=== PATIENT | male | born 1960 | race Caucasian/White ===

== ENCOUNTER 2025-06-13 10:26 | Emergency (ER) | payer MEDICARE, SELFPAY ==
--- NOTE | 2025-06-13 10:48 | EKG_ITS ---
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
--- NOTE | 2025-06-13 10:48 | XR_ITS ---
PA chest film on 06/13/2025 Comparison study Findings heart size and configuration are normal. There is mildly prominent diffuse elongation and tortuosity of the thoracic aorta, quite possibly related to hypertensive cardiovascular disease. This is definitely more prominent than on the prior chest film. Both right and left lungs and pleural space are clear normal pulmonary vascularity is normal. No abnormalities are seen involving the bony thorax there is no evidence of enlargement of the spleen. IMPRESSION: 1. Since the previous comparison chest film the patient has developed increased mild elongation and tortuosity of the thoracic aorta. 2. In all other respects the chest films entirely normal
[2025-06-13 10:49] VITALS: BP 160/88; PULSE 78; RESP 18; TEMP 36.7; O2SAT 96; BMI 23.6
--- NOTE | 2025-06-13 10:49 | PD.EDRME ---
Rapid Medical Screening Exam RME Arrival date/time: 06/13/25 10:26 64-year-old male with a history of hypertension presents to the emergency room with a chief complaint of dizziness, lightheadedness, headache x 2 days I have greeted and performed a focused initial assessment of this patient. A comprehensive ED assessment and evaluation of the patient, analysis of all test results, and completion of the medical decision making process will be conducted by additional ED providers. Chief Complaint: Dizziness Vital signs reviewed by provider: Yes Exam: The patient is a GCS of 15 he is alert and oriented x 3 Patient has clear bilateral lung sounds The patient has a strong and regular rhythm Clinical Impression: Community-acquired pneumonia/anemia/orthostatic hypotension
--- NOTE | 2025-06-13 11:07 | EDNOTE_ITS ---
ED Dizzyness RME/HPI General Chief Complaint: Dizziness Stated Complaint: HIGH BP, DIZZY LAST NIGHT, COUGH Time Seen by Provider: 06/13/25 11:07 Arrival date/time: 06/13/25 10:26 RME / HPI RME / HPI Narrative: 06/13/25 10:26 64-year-old male with a history of hypertension presents to the emergency room with a chief complaint of dizziness, lightheadedness, headache x 2 days I have greeted and performed a focused initial assessment of this patient. A comprehensive ED assessment and evaluation of the patient, analysis of all test results, and completion of the medical decision making process will be conducted by additional ED providers. See [facility] for Dr. Beard's HPI Documentation. Exam: The patient is a GCS of 15 he is alert and oriented x 3 Patient has clear bilateral lung sounds The patient has a strong and regular rhythm Impression: Community-acquired pneumonia/anemia/orthostatic hypotension Related Data Home Medications ?Medication ?Instructions ?Recorded ?Confirmed atenolol 25 mg tablet 25 mg PO QDAY 01/05/2401/04 lisinopril 20 mg tablet 20 mg PO QDAY 01/05/2401/04 Previous Rx's ?Medication ?Instructions ?Recorded azithromycin 500 mg tablet 500 mg PO QDAY 3 days #3 ta bs 06/13/25 (Zithromax TRI-SANTOS) clonidine HCl 0.1 mg tablet 0.1 mg PO BID #60 tabs 02/28 scopolamine base 1 mg over 3 days 1 mg topical .q72 ho urs PRN 06/13/25 transdermal patch (Transderm-Scop) dizziness or vertig o #4 ea Allergies Allergy/AdvReac Type Severity Reaction Status Date / Time No Known Allergies Allergy Verified 06/13/25 10:31 Review of Systems Review of Systems Systems Reviewed: All systems reviewed, normal except as documented ED Exam Narrative Physical exam: See [facility] for Dr. Beard's Physical Exam Documentation. Course Quality Measures none Orders Category Date Time Status EKG (ED ONLY) *Do not use* NOW Care 06/13/25 10:[address] head/brain wo con Stat Exams 06/13/25 11:10 Completed EKG (ED Only) Stat Exams 06/13/25 10:48 Draft XR chest 1V portable Stat Exams 06/13/25 10:48 Completed B-Type Natriuretic Peptide Stat Lab 06/13/25 11:10 Completed Bilirubin,Direct Stat Lab 06/13/25 11:10 Completed CBC Stat Lab 06/13/25 11:10 Completed Comprehensive Metabolic Panel Stat Lab 06/13/25 11:10 Completed Free T4 (Free Thyroxine) Stat Lab 06/13/25 11:10 Completed Magnesium Stat Lab 06/13/25 11:10 Completed TSH [Thyroid Stimulating Hormone] Stat Lab 06/13/25 11:10 Completed Troponin I Stat Lab 06/13/25 11:10 Completed Urinalysis, C/S if Indicated Stat Lab 06/13/25 11:30 Completed cloNIDine HCL [Catapres] Med 06/13/25 11:09 Discontinued 0.2 mg PO X1 ONE Vital Signs Vital signs: Vital Signs Temperature 98.0 F 06/13/25 10:49 Pulse Rate 78 06/13/25 10:49 Respiratory Rate 18 06/13/25 10:49 Blood Pressure 160/88 H 06/13/25 10:49 Pulse Oximetry (%) 96 06/13/25 10:49 Oxygen Delivery Method Room Air 06/13/25 10:49 Dizziness MDM Narrative MDM Narrative:: This section includes all my notes and documentations, including HPI, PE, and ED course. James Beard MD HPI: 64-year-old male here with vertigo symptoms since last night. Resolved a few hours ago. Takes atenolol 25 mg and lisinopril 20 mg every morning. This morning, he took 2 pills of lisinopril 20 mg. He also reports a week of worsening cough, productive cough, purulent sputum, and dyspnea--getting better. No speech or visual impairment.no loss of power in the arms or legs. No chest pain. No other complaints. ROS: All negative except as documented in HPI. Physical Exam: General:? Alert and oriented.? No acute distress.??High BP noted. Eyes:? Conjunctivae and lids clear.? EOMI.? PERRL. ENT:? No nasal congestion.? Pharynx normal.? Tympanic membrane normal bilaterally.??? Neck:? Supple.? No carotid bruit.? No JVD.?? Heart:? RRR.? Lungs:? No respiratory distress.? Good air movement.? No rhonchi, wheezing, rales.?? Abdomen:? Soft and nontender.? Legs:? No clubbing, cyanosis, edema.? Skin:? Warm and dry.?? Neuro:? Alert and oriented X 3.? Cranial Nerves II-XII grossly intact.? No peripheral motor deficits. I reviewed all diagnostic test results: My interpretation of the EKG is: Sinus rhythm (78 bpm) with nonspecific ST-T c hanges. My interpretation of the chest x-ray is NAD. My review of the Head/Brain CT report is NAD. Blood tests and urine tests unremarkable. At this point, diagnoses include: Vertigo Hypertension Respiratory Infection Treatment here included: Catapres 0.2 mg PO BP improved. Recommended more outpatient care. Based on my best medical judgment, made decision no further evaluation or treatment indicated at this time. Patient understands and agrees to the discharge instructions customized and printed, see below. Discharge Instructions from Dr. Beard printed for you: 1. After extensive evaluation, there is no life-threatening condition. Such as stroke or brain tumor or heart attack. 2. Your vertigo dizziness last night (see attached handout) was due to inner ear infection. Scopolamine patches as needed with spinning dizziness. 3. Take Zithromax for bronchitis and the inner ear infection. 4. We need to keep BP low to prevent future heart attacks and strokes. Continue your current lisinopril and atenolol daily. Take Clonidine 0.1 mg pill(s) every 12 hours as needed based on SBP (higher number of BP). SBP > 140, take one pill. SBP > 160, take two pills. SBP > 180, take three pills. SBP > 200, take four pills. 5. See a private doctor on 06/15/2025 for recheck and further care. Ask to review all test results and official radiology reports, to make sure you receive all necessary follow-ups and monitoring. To make sure there is no serious underlying heart condition, ask to help you get more tests for your heart that cannot be done here in the ER. Such as Holter Monitor (cardiac monitoring at home from a day to even a month), heart stress test (on treadmill or with medication), echocardiogram (imaging of your heart structures), heart catherization (checking for blockages in your heart arteries), and a referral to see a Hard Hat Diver. 6. Seek immediate medical care with worsening or with any concerns. James Beard MD Patient data External records reviewed:: [facility] previous records (No prior ED records available for review) Clinical information provided by:: patient Social determinants that could affect healthcare access:: none Patient has the following chronic illnesses:: None reported How is presenting disease/condition affected by chronic disease/condition?: no chronic disease Evaluation data The following diagnostics were reviewed and interpreted by me:: EKG tracing(s) (My interpretation of the EKG is: Sinus rhythm (78 bpm) with nonspecific ST-T changes. James Beard MD) Lab and/or radiology exams considered but not ordered:: None Interpretation Summary: I reviewed all diagnostic test results: My interpretation of the EKG is: Sinus rhythm (78 bpm) with nonspecific ST-T changes. My interpretation of the chest x-ray is NAD. My review of the Head/Brain CT report is NAD. Blood tests and urine tests unremarkable. Medications / Prescriptions Medications or Prescriptions considered but not ordered:: None Medication administrations:: Medication Administration History Discontinued Medications Clonidine (Clonidine Hcl 0.1 Mg Tablet) 0.2 mg PO X1 ONE Stop: 06/13/25 11:10 Last Admin: 06/13/25 11:26 Dose: 0.2 mg Documented By: LYNETTE Catapres 0.2 mg PO Consultations Consultation(s) initiated? (list below): No Diagnosis Dizziness Differential Diagnosis: adverse reaction to drug, benign paroxysmal positional vertigo, orthostatic hypotension, vertebral basilar insufficiency, cerebrovascular accident, acute vestibular neuronitis and transient cerebral ischemia Most likely diagnosis given after review of the tests above:: Vertigo Hypertension Respiratory Infection Admission Indicated Admission indicated?: not indicated Explain why admission is indicated or not indicated:: With significant improvement and no condition needing emergent intervention, the re was no indication for admission. Admission Request Was there a request for admission?: No Disposition Plan Disposition Plan: Discharge Discharge Attestation Discharge Attestation: The patient and all family members were given an opportunity to ask questions and understood the discharge instructions. Discharge instructions specifically effects, indications for sooner follow up or return to the emergency department, and the expected course of current diagnosis. Patient condition: Stable Discharge Plan Plan Patient Disposition: HOME (Self Care) Prescriptions/Referrals Prescriptions/Med Rec: New clonidine HCl 0.1 mg tablet 0.1 mg PO BID Qty: 60 0RF scopolamine base [Transderm-Scop] 1 mg over 3 days patch 3 day 1 mg topical .q72 hours PRN (Reason: dizziness or vertigo) Qty: 4 0RF azithromycin [Zithromax TRI-SANTOS] 500 mg tablet 500 mg PO QDAY 3 Days Qty: 3 0RF No Action lisinopril 20 mg tablet 20 mg PO QDAY atenolol 25 mg tablet 25 mg PO QDAY Problem List Clinical Impression: Vertigo, Respiratory infection, Hypertension Patient/Caregiver Discharge Instructions Discharge Activity: activity as tolerated Education Materials: ED Bronchitis, Antibiotics (Child), ED Hypertension, Established, ED Vertigo, Unspecified Additional Instructions: Discharge Instructions from Dr. Beard printed for you: 1. After extensive evaluation, there is no life-threatening condition. Such as stroke or brain tumor or heart attack. 2. Your vertigo dizziness last night (see attached handout) was due to inner ear infection. Scopolamine patches as needed with spinning dizziness. 3. Take Zithromax for bronchitis and the inner ear infection. 4. We need to keep BP low to prevent future heart attacks and strokes. Continue your current lisinopril and atenolol daily. Take Clonidine 0.1 mg pill(s) every 12 hours as needed based on SBP (higher number of BP). SBP > 140, take one pill. SBP > 160, take two pills. SBP > 180, take three pills. SBP > 200, take four pills. 5. See a private doctor on 06/15/2025 for recheck and further care. Ask to review all test results and official radiology reports, to make sure you receive all necessary follow-ups and monitoring. To make sure there is no serious underlying heart condition, ask to help you get more tests for your heart that cannot be done here in the ER. Such as Holter Monitor (cardiac monitoring at home from a day to even a month), heart stress test (on treadmill or with medication), echocardiogram (imaging of your heart structures), heart catherization (checking for blockages in your heart arteries), and a referral to see a Hard Hat Diver. 6. Seek immediate medical care with worsening or with any concerns. Print Language: Maltese Stand Alone Forms: Maria Esther Award Info., Patient Portal Info Letter
--- NOTE | 2025-06-13 11:10 | XR_ITS ---
Examination: CT brain head without contrast. 2-D sagittal coronal reconstructions Date and time of exam: Examination was performed on 06/13/2025 at 11:40 3:00 a.m. CTDI: vol (mGy): CTDI is 53.0 DLP: (mGycm): 1120 Technique: Multiple CT axial sections of the brain have been obtained, 5 mm slice thickness. Contrast has not been administered. 2-D sagittal, coronal reconstructions have been obtained Low dose protocols were performed. One or more of the following dose reduction techniques were used; automated exposure control, adjustment of the mA and/or KV according to patient size, use of iterative reconstruction technique. Findings: No significant ventricular enlargement. Intra-axial or extra-axial hemorrhage density is not seen. No mass effect or midline shift There is mildly prominent dilatation of the extra-axial space over both right and left parietal lobe convexities and over the ventral margin of the right and left frontal lobes. . 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 The remaining paranasal sinuses are clear and normal Cranial vault intact. Impression: Negative for acute hemorrhage, mass effect or midline shift 2. 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
[2025-06-13 11:26] VITALS: BP 160/88; PULSE 78
[2025-06-13 11:37] LABS: Basophils # (Auto) 0.0 Thou/mm3 (0.0-0.2); Basophils % (Auto) 0 % (0-2.5); Eosinophils # (Auto) 0.0 Thou/mm3 (0.0-0.5); Eosinophils % (Auto) 0 % (0-10); Hematocrit 41.4 % (41.0-53.0); Hemoglobin 14.1 g/dL (13.5-16.0); Immature Granulocytes Auto 0.02 Thou/mm3 (0.00-0.00); Lymphocytes # (Auto) 1.1 Thou/mm3 (1.0-4.8); Lymphocytes % (Auto) 20 % (10-50); Mean Corpuscular HGB Conc 34.1 g/dl (31.0-37.0); Mean Corpuscular Hemoglobin 31.4 pg (25.0-35.0); Mean Corpuscular Volume 92 fL (80-100); Monocytes # (Auto) 0.3 Thou/mm3 (0.0-0.8); Monocytes % (Auto) 6 % (0-12); Neutrophils # (Auto) 4.1 Thou/mm3 (1.8-7.7); Neutrophils % (Auto) 73 % (37-80); Nucleated Red Blood Cell # 0.00 Thou/mm3 (0.00-0.00); Nucleated Red Blood Cell % 0 /100 WBC (0); Platelet Count 203 Thou/mm3 (140-440); RDW Standard Deviation 42.2 fL (35.1-43.9); Red Blood Count 4.49 Miln/mm3 (4.50-5.90); White Blood Count 5.6 Thou/mm3 (3.8-10.6)
[2025-06-13 11:50] LABS: Collection Type, Urine Clean Catch; Squamous Epithelial Cell,Urine 0 /hpf (0-5)
[2025-06-13 11:55] LABS: B-Type Natriuretic Peptide 43 pg/mL (0-100)
[2025-06-13 11:59] LABS: Alanine Aminotransferase 25 U/L (10-49); Albumin, Serum 4.5 gm/dL (3.4-4.8); Albumin/Globulin Ratio 1.3 (1.2-2.2); Alkaline Phosphatase 91 U/L (46-116); Anion Gap 9 (7-16); Aspartate Amino Transferase 31 U/L (0-34); BUN/Creatinine Ratio 16 Ratio (12-20); Bilirubin,Direct 0.1 mg/dL (0.0-0.3); Bilirubin,Total 0.4 mg/dL (0.3-1.2); Blood Urea Nitrogen 18 mg/dL (9-23); Calcium 9.0 mg/dL (8.3-10.6); Calcium (Corrected) 9.0 mg/dL (8.5-10.1); Carbon Dioxide 28.5 mMol/L (20.0-31.0); Chloride 101 mMol/L (98-107); Creatinine (Component) 1.1 mg/dL (0.6-1.3); Estimated Creatinine Clearance 66.1 mL/min (>60); Free T4 (Free Thyroxine) 1.30 ng/dL (0.89-1.76); Globulin 3.6 gm/dL (2.3-3.5); Glucose 117 mg/dL (74-106); Magnesium 1.7 mg/dL (1.6-2.6); Osmolality,Calculated 278 (275-295); Potassium 4.5 mMol/L (3.4-5.1); Sodium 138 mMol/L (136-145); Thyroid Stimulating Hormone 1.64 uIU/mL (0.55-4.78); Total Protein 8.1 gm/dL (5.7-8.2); Troponin I < 0.020 ng/mL (0.0-0.045); eGFR > 60 See Note
[2025-06-13 12:00] LABS: Bilirubin,Urine Negative (Negative); Blood,Urine Negative (Negative); Clarity,Urine Clear (Clear/Hazy); Color,Urine Yellow (Lt Yel-Yel); Culture Indicated,Urine Not Indicated; Glucose, Urine Negative (Negative); Ketones,Urine 1+ (Negative); Leukocyte Esterase,Urine Negative (Negative); Nitrite,Urine Negative (Negative); PH,Urine 6.0 (5.0-7.0); Protein,Urine 1+ (Neg - Trace); RBC,Urine 4 /hpf (0-3); Specific Gravity,Urine 1.027 (1.001-1.035); Urobilinogen,Urine 2.0 mg/dL (0.0-1.0); WBC,Urine 1 /hpf (0-5)
== END 2025-06-13 12:59 | disposition home or self-care (01) ==
PROVIDERS: Nurse Practitioner Family; Emergency Provider Emergency Medicine
DX: J98.8 Other specified respiratory disorders (principal); I10 Essential (primary) hypertension; R42 Dizziness and giddiness
CPT/HCPCS: 36415; 70450; 71045; 80053; 81001; 82248; 83735; 83880; 84439; 84443; 84484; 85025; 93005; 99283; A9270